=== PATIENT | female | born 1985 | race American Indian/Alaskan Native ===

== ENCOUNTER 2018-07-30 09:29 | Emergency (ER) | payer BC, MEDICAID ==
--- NOTE | 2018-07-30 10:06 | C.PDOC ---
History Of Present Illness Patient reports 4 day history of upper back pain, started on the right side, now on the left. Denies trauma, but states that she thinks the pain is from work because she does a lot of heavy lifting. States that she had pain when moving her arms earlier, but after taking Advil she is now able to range her arms without difficulty. Denies any neurological symptoms. Time Seen by Provider: 07/30/18 09:43 Chief Complaint (Nursing): Back Pain Past Medical History Reviewed: Historical Data, Nursing Documentation, Vital Signs Vital Signs: Last Vital Signs Temp 98.7 F 07/30/18 09:38 Pulse 90 07/30/18 09:38 Resp 18 07/30/18 09:38 BP 118/76 07/30/18 09:38 Pulse Ox 100 07/30/18 09:38 - Medical History Other PMH: Scoliosis Family History: States: Unknown Family Hx - Social History Hx Alcohol Use: No Hx Substance Use: No - Immunization History Hx Tetanus Toxoid Vaccination: Yes Hx Influenza Vaccination: No Hx Pneumococcal Vaccination: No Review Of Systems Except As Marked, All Systems Reviewed And Found Negative. Constitutional: Negative for: Fever Cardiovascular: Negative for: Chest Pain Respiratory: Negative for: Cough, Shortness of Breath Gastrointestinal: Negative for: Nausea, Vomiting, Abdominal Pain, Diarrhea Musculoskeletal: Positive for: Back Pain. Negative for: Neck Pain Skin: Negative for: Rash Neurological: Negative for: Weakness, Numbness, Altered Mental Status Physical Exam - Physical Exam Appears: Well, Non-toxic, No Acute Distress Skin: Normal Color, Warm, Dry Head: Atraumatic Neck: Normal ROM, No Midline Cervical Tenderness, No Paracervical Tenderness, No Step Off Deformity Cardiovascular: Rhythm Regular Respiratory: Normal Breath Sounds Gastrointestinal/Abdominal: Normal Exam Back: Normal Inspection, No CVA Tenderness, No Vertebral Tenderness, No Decreased ROM, Paraspinal Tenderness (thoracic) Extremity: Normal ROM, No Deformity, No Swelling Neurological/Psych: Oriented x3, Normal Motor, Normal Sensation Gait: Steady ED Course And Treatment O2 Sat by Pulse Oximetry: 100 Medical Decision Making Medical Decision Making: Patient advised to continue taking Advil at home. Rx also written for Valium for muscle spasm. Advised not to operate heavy machinery or work while taking Valium as it can make her drowsy. Disposition - Disposition Disposition: HOME/ ROUTINE Disposition Time: 10:08 Condition: STABLE Additional Instructions: STEFAN WALKER, thank you for letting us take care of you today. Your provider was Kelley Khalil MD and you were treated for BACK PAIN. The emergency medical care you received today was directed at your acute symptoms. If you were prescribed any medication, please fill it and take as directed. It may take several days for your symptoms to resolve. Return to the Emergency Department if your symptoms worsen, do not improve, or if you have any other problems. Please contact your doctor or call one of the physicians/clinics you have been referred to that are listed on the Patient Visit Information form that is included in your discharge packet. Bring any paperwork you were given at discharge with you along with any medications you are taking to your follow up visit. Our treatment cannot replace ongoing medical care by a primary care provider outside of the emergency department. Thank you for allowing the [facility] team to be part of your care today. If you had an X-Ray or CT scan: A Radiologist will review the ED reading if any change in treatment is needed we will contact you. If you had a blood, urine, or wound culture: It will take several days for the results, if any change in treatment is needed we will contact you. If you had an STI test: It will take 48 hours for the results. Please call after 1 week if you have not heard back. Prescriptions: diaZEpam [Valium] 5 mg PO TID PRN #9 tab PRN Reason: Muscle Spasm Instructions: Upper Back Pain (DC) - Clinical Impression Clinical Impression: Thoracic back pain
[2018-07-30 12:54] VITALS: BP 118/76; PULSE 90; RESP 18; TEMP 98.7; O2SAT 100
== END 2018-07-30 10:19 | disposition home or self-care (01) ==
LOC: C.ER 09:29
DX: M54.6 Pain in thoracic spine (principal)